=== PATIENT | male | born 1960 | race Hispanic/Latino ===

== ENCOUNTER 2019-01-07 00:10 | Emergency (ER) | payer OTHER ==
--- NOTE | 2019-01-07 02:06 | Emergency Department Report ---
ED General Adult HPI - General Chief complaint: Abdominal Pain Stated complaint: HERNIA Time Seen by Provider: 01/07/19 01:54 Source: patient Mode of arrival: Ambulatory Limitations: No Limitations - History of Present Illness Initial comments: Patient is a 58-year-old male presents to the emergency room with complaints of a hernia to his right groin that began causing him pain one week ago. 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 He denies any nausea, vomiting, diarrhea, fever, dysuria, difficulty urinating, abdominal pain. He states he had a normal bowel movement this morning. He states he had inguinal hernia repair on left side at 12 years old and on the right side at 19 years old. He has not seen anyone for this since he started having pain. PMHx DM. Allergy: strawberries. - Related Data Previous Rx's Medication Instructions Recorded Last Taken Type Ibuprofen [Motrin 600 MG tab] 600 mg PO Q8H PRN #14 tablet 01/07/19 Unknown Rx traMADol [Ultram 50 MG tab] 50 mg PO Q6HR PRN #7 tablet 01/07/19 Unknown Rx Allergies Allergy/AdvReac Type Severity Reaction Status Date / Time strawberry Allergy Swelling Verified 01/07/19 00:15 ED Review of Systems ROS: Stated complaint: HERNIA Other details as noted in HPI Comment: All other systems reviewed and negative ED Past Medical Hx - Past Medical History Previous Medical History?: Yes Hx Diabetes: Yes Hx COPD: Yes - Surgical History Past Surgical History?: Yes Additional Surgical History: hernia repair - Social History Smoking Status: Current Every Day Smoker Substance Use Type: None - Medications Home Medications: Home Medications Medication Instructions Recorded Confirmed Last Taken Type Ibuprofen [Motrin 600 MG tab] 600 mg PO Q8H PRN #14 tablet 01/07/19 Unknown Rx traMADol [Ultram 50 MG tab] 50 mg PO Q6HR PRN #7 tablet 01/07/19 Unknown Rx ED Physical Exam - General Limitations: No Limitations General appearance: alert, in no apparent distress - Head Head exam: Present: atraumatic, normocephalic - Eye Eye exam: Present: normal appearance - ENT ENT exam: Present: mucous membranes moist - Respiratory Respiratory exam: Present: normal lung sounds bilaterally. Absent: respiratory distress, wheezes, rales, rhonchi, stridor, chest wall tenderness, accessory mu scle use, decreased breath sounds, prolonged expiratory - Cardiovascular Cardiovascular Exam: Present: regular rate, normal rhythm, normal heart sounds. Absent: systolic murmur, diastolic murmur, rubs, gallop - GI/Abdominal GI/Abdominal exam: Present: soft, normal bowel sounds, hernia (small easily reducible right sided inguinal hernia ), other (hospital pharmacy director: GERMAN Hart). Absent: distended, tenderness, guarding, rebound, rigid - Neurological Exam Neurological exam: Present: alert, oriented X3 - Psychiatric Psychiatric exam: Present: normal affect, normal mood - Skin Skin exam: Present: warm, dry, intact ED Course Vital Signs 01/07/19 00:14 Temperature 98.0 F Pulse Rate 80 Respiratory 16 Rate Blood Pressure 122/77 O2 Sat by Pulse 97 Oximetry ED Medical Decision Making - Lab Data Result diagrams: 01/07/19 02:10 01/07/19 02:10 Lab Results 01/07/19 01/07/19 01/07/19 Range/Units 02:10 02:10 02:11 WBC 9.0 (4.5-11.0) K/mm3 RBC 5.14 H (3.65-5.03) M/mm3 Hgb 15.8 H (11.8-15.2) gm/dl Hct 45.8 H (35.5-45.6) % MCV 89 (84-94) fl MCH 31 (28-32) pg MCHC 34 (32-34) % RDW 13.5 (13.2-15.2) % Plt Count 214 (140-440) K/mm3 Lymph % (Auto) 42.9 H (13.4-35.0) % [place] % (Auto) 8.6 H (0.0-7.3) % Eos % (Auto) 2.0 (0.0-4.3) % Baso % (Auto) 0.7 (0.0-1.8) % Lymph # 3.9 (1.2-5.4) K/mm3 [place]han # 0.8 (0.0-0.8) K/mm3 Eos # 0.2 (0.0-0.4) K/mm3 Baso # 0.1 (0.0-0.1) K/mm3 Seg Neutrophils % 45.8 (40.0-70.0) % Seg Neutrophils # 4.1 (1.8-7.7) K/mm3 Sodium 139 (137-145) mmol/L Potassium 4.1 (3.6-5.0) mmol/L Chloride 104.5 (98-107) mmol/L Carbon Dioxide 28 (22-30) mmol/L Anion Gap 11 mmol/L BUN 18 (9-20) mg/dL Creatinine 1.0 (0.8-1.5) mg/dL Estimated GFR > 60 ml/min BUN/Creatinine Ratio 18 % Glucose 141 H (75-100) mg/dL Calcium 9.1 (8.4-10.2) mg/dL Urine Color Yellow (Yellow) Urine Turbidity Clear (Clear) Urine pH 5.0 (5.0-7.0) Ur Specific Jeffers 1.027 (1.003-1.030) Urine Protein <15 mg/dl (Negative) mg/dL Urine Glucose (UA) Neg (Negative) mg/dL Urine Ketones Tr (Negative) mg/dL Urine Blood Neg (Negative) Urine Nitrite Neg (Negative) Urine Bilirubin Neg (Negative) Urine Urobilinogen 2.0 (<2.0) mg/dL Ur Leukocyte Esterase Neg (Negative) Urine WBC (Auto) 1.0 (0.0-6.0) /HPF Urine RBC (Auto) 1.0 (0.0-6.0) /HPF U Epithel Cells (Auto) 1.0 (0-13.0) /HPF Urine Mucus 1+ /HPF - Radiology Data Radiology results: report reviewed CT of the abdomen and pelvis with contrast INDICATION: Right groin pain COMPARISON: None FINDINGS: The lung bases are clear. The liver, spleen, pancreas, adrenal glands and kidneys show no abnormalities. No definite gallbladder or biliary tree abnormality. No fluid or adenopathy in the upper abdomen. CT of the pelvis shows a normal appendix. A right inguinal hernia is seen containing only fat. There is no induration in this area and no evidence of fat necrosis or strangulation. No diverticulosis or diverticulitis. There is no pelvic fluid or adenopathy. No bowel obstruction. No significant skeletal lesion. IMPRESSION: Fat-containing right inguinal hernia without definite complication. Automated exposure control was utilized to diminish radiation dose. Signer Name: Ignacio Guerra MD Signed: 01/07/2019 3:45 AM Workstation Name: [id number] Transcribed By: GEN Dictated By: Ignacio Guerra MD Electronically Authenticated By: Ignacio Guerra MD Signed Date/Time: 01/07/19 8713 - Medical Decision Making Patient is a 58-year-old male presents to the emergency room with complaints of a hernia to his right groin that began causing him pain one week ago. 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 He denies any nausea, vomiting, diarrhea, fever, dysuria, difficulty urinating, abdominal pain. He states he had a normal bowel movement this morning. He states he had inguinal hernia repair on left side at 12 years old and on the right side at 19 years old. He has not seen anyone for this since he started having pain. PMHx DM. Allergy: strawberries. vitals are normal. Labs are stable. UA without evidence of UTI. CT abd pelvis with contrast shows: Fat-containing right inguinal hernia without definite complication. on exam: small easily reducible right sided inguinal hernia. pt given 1L NS and toradol and discomfort resolved. pt given prescription for pain medication. advised to take as prescribed as needed. do not drive or operate heavy machinery while taking pain medicine. follow up with a general surgeon in the next 2-3 days. drink plenty of fluids. return to the emergency room for any new or worsening symptoms. Critical care attestation.: If time is entered above; I have spent that time in minutes in the direct care of this critically ill patient, excluding procedure time. ED Disposition Clinical Impression: Right inguinal hernia, Right groin pain Disposition: - TO HOME OR SELFCARE Is pt being admited?: No Does the pt Need Aspirin: No Condition: Stable Instructions: Inguinal Hernia (ED) Additional Instructions: take as prescribed as needed. do not drive or operate heavy machinery while taking pain medicine. follow up with a general surgeon in the next 2-3 days. drink plenty of fluids. return to the emergency room for any new or worsening symptoms. Prescriptions: Ibuprofen [Motrin 600 MG tab] 600 mg PO Q8H PRN #14 tablet PRN Reason: Pain traMADol [Ultram 50 MG tab] 50 mg PO Q6HR PRN #7 tablet PRN Reason: Pain , Severe (7-10) Referrals: CARLEE ZHANG MD [Staff Physician] - 2-3 Days Time of Disposition: 03:59 Print Language: PORTUGUESE
[2019-01-07 02:28] LABS: Bilirubin,Urine NEG (Negative); Blood,Urine NEG (Negative); Color,Urine Yellow (Yellow); Mucus,Urine 1+ /HPF; Protein,Urine <15 mg/dL mg/dL (Negative)
[2019-01-07 02:28] LABS: Basophils # (Auto) 0.1 K/mm3 (0.0-0.1); Basophils % (Auto) 0.7 % (0.0-1.8); Eosinophils # (Auto) 0.2 K/mm3 (0.0-0.4); Hematocrit 45.8 % (35.5-45.6); Hemoglobin 15.8 gm/dl (11.8-15.2); Lymphocytes # (Auto) 3.9 K/mm3 (1.2-5.4); Lymphocytes % (Auto) 42.9 % (13.4-35.0); Mean Corpuscular HGB Conc 34 % (32-34); Mean Corpuscular Volume 89 fl (84-94); Monocytes # (Auto) 0.8 K/mm3 (0.0-0.8); Monocytes % (Auto) 8.6 % (0.0-7.3); Platelet Count 214 K/mm3 (140-440); Red Blood Count 5.14 M/mm3 (3.65-5.03); Red Cell Distribution Width 13.5 % (13.2-15.2)
[2019-01-07 02:40] LABS: BUN/Creatinine Ratio 18; Blood Urea Nitrogen 18 mg/dL (9-20); Calcium 9.1 mg/dL (8.4-10.2); Hemolysis Index 4
[2019-01-07] MEDS ORDERED: TORADOL IV ONE (03:00)
[2019-01-07] MEDS ORDERED: NACL 0.9% 1000 ML 1,000 ML IV ONE (03:00)
--- NOTE | 2019-01-07 03:49 | Cat Scan Report ---
CT of the abdomen and pelvis with contrast INDICATION: Right groin pain COMPARISON: None FINDINGS: The lung bases are clear. The liver, spleen, pancreas, adrenal glands and kidneys show no a bnormalities. No definite gallbladder or biliary tree abnormality. No fluid or adenopathy in the uppe r abdomen. CT of the pelvis shows a normal appendix. A right inguinal hernia is seen containing only fat. There is no induration in this area and no evidence of fat necrosis or strangulation. No diverticulosis or diverticulitis. There is no pelvic fluid or adenopathy. No bowel obstruction. No significant skeletal lesion. IMPRESSION: Fat-containing right inguinal hernia without definite complication. Automated exposure control was utilized to diminish radiation dose. Signer Name: Ignacio Guerra MD Signed: 01/07/2019 3:45 AM Workstation Name: [id number]
[2019-01-07 04:46] VITALS: BP 124/84
== END 2019-01-07 04:46 | disposition home or self-care (01) ==
LOC: ED 00:10
DX: K40.90 Unilateral inguinal hernia, without obstruction or gangrene, not specified as recurrent (principal); E11.9 Type 2 diabetes mellitus without complications; J44.9 Chronic obstructive pulmonary disease, unspecified; F17.200 Nicotine dependence, unspecified, uncomplicated; Z79.899 Other long term (current) drug therapy; Z91.018 Allergy to other foods
CPT/HCPCS: 36415; 74177; 80048; 81001; 85025; 96374; 99284; J1885; J7030; Q9967

== ENCOUNTER 2019-01-21 05:58 | Day surgery (SDC) | payer OTHER ==
[~2019-01-21 05:58] MED LIST: LACTATED RINGERS 1,000 ML IV SCH
[2019-01-21] MEDS ORDERED: NEURONTIN PO NR (06:00)
[2019-01-21] MEDS ORDERED: PROVENTIL IH NR (06:00)
[2019-01-21] MEDS ORDERED: VERSED IV NR (06:00)
[2019-01-21] MEDS ORDERED: NACL BACTERIOSTATIC INFILTRATI ONE (06:45)
[2019-01-21] MEDS ORDERED: DILAUDID IV PRN (07:09)
--- NOTE | 2019-01-21 07:09 | Anesthesia Consultation ---
Anesthesia Consult and Med Hx Date of service: 01/21/19 - Airway Anesthetic Teeth Evaluation: Good ROM Head & Neck: Adequate Mental/Hyoid Distance: Adequate Mallampati Class: Class III Intubation Access Assessment: Possibly Difficult - Pulmonary Exam CTA: Yes - Cardiac Exam Cardiac Exam: RRR - Pre-Operative Health Status ASA Pre-Surgery Classification: ASA3 Proposed Anesthetic Plan: General - Pulmonary Hx Smoking: Yes (1PPD X 40 YR) Hx Respiratory Symptoms: No COPD: Yes (no medications) Home Oxygen Therapy: No Hx Sleep Apnea: No - Cardiovascular System Hx Hypertension: No Hx Heart Attack/AMI: No Hx Percutaneous Transluminal Coronary Angioplasty (PTCA): No - Central Nervous System Hx Seizures: No CVA: No - Gastrointestinal Hx Gastroesophageal Reflux Disease: No - Endocrine Hx Renal Disease: No Hx Liver Disease: No Hx Non-Insulin Dependent Diabetes: Yes Hx Thyroid Disease: No - Other Systems Hx Obesity: No - Additional Comments Anesthesia Medical History Comments: No hx anesthetic complications.
--- NOTE | 2019-01-21 07:09 | Anesthesia Day of Surgery ---
Anesthesia Day of Surgery - Day of Surgery Patient Examined: Yes Patient H&P Reviewed: Yes Patient is NPO: Yes
[2019-01-21] MEDS ORDERED: ANCEF/STERILE WATER 2 GM/20 ML 2 GM/20 ML SYRINGE IV SCH (07:30)
[2019-01-21] MEDS ORDERED: NACL 0.9% IR ONE (08:01)
[2019-01-21] MEDS ORDERED: MARCAINE 0.5% INFILTRATI ONE (08:01)
--- NOTE | 2019-01-21 09:07 | Discharge Summary ---
Short Stay Discharge Plan Activity: other (observe x 4 hrs then october d/c if stable and able to void. cl liq advance to solid high fiber diet as mars. ice pack R groin x 6hrs. scrotal support x 3 days. no lifting over 5 lbs x 3 wks) Diet: other Wound: keep clean and dry (x 5 days) Additional Instructions: aleve I po q 6-8 hrs prn for breakthrough pain. surfak I po q am x 3 Follow up with: PRIMARY CAREMD [Primary Care Provider] - 7 Days
[2019-01-21] MEDS ORDERED: DEMEROL IV PRN (09:26)
--- NOTE | 2019-01-21 09:40 | Operative Report ---
PREOPERATIVE DIAGNOSIS: Recurrent right inguinal hernia. POSTOPERATIVE DIAGNOSIS: Laparoscopic right inguinal hernia repair with mesh. SURGEON: Catracho Samaniego MD RESCUE BOAT OPERATOR: Dr. Mars MD ANESTHESIA: General. ESTIMATED BLOOD LOSS: Minimal. DRAINS: No drains. COMPLICATIONS: No complications. DESCRIPTION OF PROCEDURE: The patient was taken to the operating room, prepped and draped in usual sterile fashion. Infraumbilical incision was made and dissection was carried down to the muscle fascia. Muscle fascia was incised with an 11 blade. Dissection was then carried out to the preperitoneal space. A balloon dilator was then placed in the preperitoneal space and the area dilated. A Chaka was then inserted and CO2 insufflation begun. Inspection of the area did reveal a hernia. The hernia sac was dissected free from the cord and also a hernia defect was noted above the pubic area medial to the epigastric vessels. The entire area was then dissected free and the hernia sac returned to the peritoneal cavity. A Bard 3D mesh was then used to reinforce the area. The mesh was secured medially to Devin's ligament and laterally above the iliopubic tract. Superiorly, the mesh was secured to the rectus muscle. A separate strip of mesh also had to be placed medially to assure that the entire direct fascial defect was properly covered. The area was then inspected and noted to be well repaired. No evidence of any bleeding noted. The trocar removed and the CO2 expelled. The fascia at the umbilicus was closed with a [id number] 0 Vicryl suture. The skin at all port sites was closed with subcuticular 4-0 Vicryl. A 0.5% Marcaine with epinephrine was infiltrated over the areas for postoperative pain relief. The patient tolerated the procedure well and left the OR in stable condition. JOB# [id number] OSKAR/ELADIO
[2019-01-21] MEDS ORDERED: HumuLIN R ONE (10:10)
[2019-01-21] MEDS ORDERED: HumuLIN R SUB-Q ONE (10:30)
[2019-01-21 13:47] VITALS: BP 110/69
--- NOTE | 2019-01-21 14:03 | Post Anesthesia Evaluation ---
- Post Anesthesia Evaluation Patient Participated: Yes Airway Patent: Yes Stable Respiratory Function: Yes Nausea/Vomiting: No Temp > 96.8F: Yes Pain Manageable: Yes Adequeate Hydration: Yes Anesthesia Complications: No
== END 2019-01-21 13:35 | disposition home or self-care (01) ==
LOC: OR 05:58
PROVIDERS: ATTEND Surgery
DX: K40.91 Unilateral inguinal hernia, without obstruction or gangrene, recurrent (principal); J44.9 Chronic obstructive pulmonary disease, unspecified; E11.9 Type 2 diabetes mellitus without complications; F17.210 Nicotine dependence, cigarettes, uncomplicated; Z79.84 Long term (current) use of oral hypoglycemic drugs; Z98.890 Other specified postprocedural states; Z88.8 Allergy status to other drugs, medicaments and biological substances; Z79.899 Other long term (current) drug therapy
CPT/HCPCS: 49651; 82962; C1726; C1781; J0690; J1170; J2175; J2250; J7120; J1815